=== PATIENT | male | born 1995 ===

== ENCOUNTER 2017-04-23 12:26 | Emergency (ER) | payer MEDICAID, OTHER ==
[2017-04-23 12:38] VITALS: BMI 20.3
[2017-04-23] MEDS ORDERED: Dexamethasone 4 mg/1 ml ONE (12:59)
--- NOTE | 2017-04-23 14:24 | C.PDOC ---
History Of Present Illness 22 year old male presents to the ED for evaluation of sore throat which began 2 days ago. Patient is unclear about tactile temperature. Patient notes he took leftover antibiotics at home yesterday. Patient denies cough, ear pain, runny nose, or sick contacts. Time Seen by Provider: 04/23/17 12:41 Chief Complaint (Nursing): ENT Problem History Per: Patient History/Exam Limitations: None Onset/Duration Of Symptoms: Days (2) Current Symptoms Are (Timing): Still Present Past Medical History Reviewed: Historical Data, Nursing Documentation, Vital Signs Vital Signs: Last Vital Signs Temp 101.0 F H 04/23/17 14:00 Pulse 93 H 04/23/17 14:00 Resp 19 04/23/17 14:00 BP 132/71 04/23/17 14:00 Pulse Ox 97 04/23/17 14:26 - Medical History PMH: No Chronic Diseases Surgical History: No Surg Hx Family History: States: Unknown Family Hx - Social History Hx Alcohol Use: No Hx Substance Use: No - Immunization History Hx Tetanus Toxoid Vaccination: No Hx Influenza Vaccination: No Hx Pneumococcal Vaccination: No Review Of Systems ENT: Positive for: Throat Pain. Negative for: Ear Pain, Nose Discharge Respiratory: Negative for: Cough Physical Exam - Physical Exam Appears: Non-toxic, Other (uncomfortable) Skin: Normal Color, Warm, Dry Head: Tenderness (submandibular area ) Eye(s): bilateral: Normal Inspection Ear(s): Bilateral: Normal Nose: Normal, No Discharge Oral Mucosa: Moist Throat: Other (bilateral tonsilar swelling with exudates. no tracheal tenderness ) Chest: Symmetrical, No Deformity, No Tenderness Cardiovascular: Rhythm Regular, No Murmur Respiratory: Normal Breath Sounds, No Rales, No Rhonchi, No Wheezing Extremity: Normal ROM, Capillary Refill (less than 2 seconds ) Neurological/Psych: Oriented x3, Normal Speech, Normal Cognition Gait: Steady ED Course And Treatment - Laboratory Results Result Diagrams: 04/23/17 14:40 04/23/17 14:40 O2 Sat by Pulse Oximetry: 97 (on RA) Pulse Ox Interpretation: Normal Medical Decision Making Medical Decision Making: Progress: Bloodwork ordered and reviewed. Motrin PO, Tylenol PO, Decadron IM, Clindamycin IV, and and IV Fluids administered. 412 pm pt feeling much batter, decreased swelling in tonsil, able to swallow po fluids and pills, pt appears much better., will d/c with ibuprofen and antibiotics. Disposition Counseled Patient/Family Regarding: Studies Performed, Diagnosis, Need For Followup, Rx Given - Disposition Referrals: [facility] [Outside] [facility] [Outside] Disposition Time: 16:14 Condition: IMPROVED Additional Instructions: Please take antibiotics as prescribed until completely finished, do not leave any over. Take ibuprofen for pain or fever. Gargle with warm salty water several times a day. Follow up in medical clinic in 1-2 days. Return to ER for any worse pain. swelling. difficulty breathing or swallowing. Prescriptions: Amoxicillin/Clavulanate [Augmentin 875 MG-125 MG] 1 tab PO BID #20 tab Ibuprofen [Motrin] 600 mg PO TID #30 tab Instructions: Tonsillitis (ED) Forms: [facility] (American), Gen Discharge Inst American, Work Excuse - Clinical Impression Clinical Impression: Tonsillitis with exudate - PA / OPERATION SUPERVISOR / Resident Statement MD/DO has reviewed & agrees with the documentation as recorded. - Scribe Statement The provider has reviewed the documentation as recorded by the Scribe (Darlyn Avery) All medical record entries made by the Scribe were at my direction and personally dictated by me. I have reviewed the chart and agree that the record accurately reflects my personal performance of the history, physical exam, medical decision making, and the department course for this patient. I have also personally directed, reviewed, and agree with the discharge instructions and disposition.
[2017-04-23] MEDS ORDERED: Acetaminophen 160 mg/5 ml elixir (120 ml) ONE (14:43)
[2017-04-23] MEDS: Sodium Chloride 0.9% 1,000 ML IV ONE (14:44)
[2017-04-23] MEDS: Acetaminophen 160 mg/5 ml UD PO STA (14:45)
[2017-04-23 14:52] LABS: CHLORIDE 96 mmol/L (98-107); POTASSIUM 3.7 mmol/L (3.6-5.2); SODIUM 132 mmol/L (132-148)
[2017-04-23 14:55] LABS: BLOOD UREA NITROGEN 12 mg/dL (9-20); CALCIUM 9.4 mg/dl (8.6-10.4); CARBON DIOXIDE 23 mmol/L (22-30); GFR AFRICAN-AMERICAN > 60; GLUCOSE,RANDOM 95 mg/dL (75-110)
[2017-04-23 15:08] LABS: BASO % 0.2 % (0.0-2.0); HEMATOCRIT 42.9 % (35.0-51.0); LYMPH # 0.9 K/uL (1.0-4.3); LYMPH % 5.4 % (20.0-40.0); MEAN CORPUSCULAR HEMOGLOBIN 31.9 pg (27.0-31.0); MEAN CORPUSCULAR HGB CONC 35.8 g/dL (33.0-37.0); MEAN PLATELET VOLUME 10.1 fL (7.2-11.7); MONO # 0.6 K/uL (0.0-0.8); MONO % 3.8 % (0.0-10.0); NRBC % 0.1 % (0.0-2.0); PLATELET COUNT 187 K/uL (130-400); RED CELL DISTRIBUTION WIDTH 12.8 % (11.5-14.5)
[2017-04-23 15:13] LABS: NEUTROPHIL 90 % (50-75); TOTAL CELLS COUNTED 100
[2017-04-23 16:14] VITALS: BP 119/73; PULSE 67; RESP 16; TEMP 97.7
[2017-04-23 16:15] VITALS: O2SAT 97
== END 2017-04-23 16:26 | disposition home or self-care (01) ==
LOC: C.ER 12:26
DX: J03.90 Acute tonsillitis, unspecified (principal)
CPT/HCPCS: 80048; 85025; 87070; 87430; 96365; 96372; 99284; J1100; J7040

== ENCOUNTER 2018-09-30 15:24 | Emergency (ER) | payer MEDICAID, OTHER ==
[2018-09-30 15:24] VITALS: BMI 20.3
[2018-09-30] MEDS ORDERED: cefTRIAXone 250 MG, Water For Injection 20 ML IM ONE (16:23)
[2018-09-30 16:25] LABS: URINE BACTERIA RARE (<OCC); URINE BILIRUBIN NEGATIVE (NEGATIVE); URINE BLOOD NEGATIVE (NEGATIVE); URINE CLARITY Clear (Clear); URINE COLOR Yellow (YELLOW); URINE GLUCOSE (UA) NORMAL (Normal); URINE LEUKOCYTE ESTERASE NEG Leu/uL (Negative); URINE PROTEIN 1+ mg/dL (NEGATIVE); URINE UROBILINOGEN NORMAL mg/dL (0.2-1.0)
--- NOTE | 2018-09-30 16:43 | C.PDOC ---
History Of Present Illness 23 year old male presents to ED with complaint of dysuria for 4 weeks after having unprotected sex. Patient also complains of crampy belly discomfort. Patient denies penile discharge. Time Seen by Provider: 09/30/18 15:37 Chief Complaint (Nursing): Abdominal Pain History Per: Patient History/Exam Limitations: no limitations Onset/Duration Of Symptoms: Other (4 weeks) Current Symptoms Are (Timing): Still Present Location Of Pain/Discomfort: Diffuse Radiation Of Pain To:: None Quality Of Discomfort: Cramping Associated Symptoms: Urinary Symptoms (dysuria). denies: Fever, Chills, Other (penile discharge) Exacerbating Factors: None Alleviating Factors: None Past Medical History Reviewed: Historical Data, Nursing Documentation, Vital Signs Vital Signs: Last Vital Signs Temp 97.7 F 09/30/18 15:32 Pulse 57 L 09/30/18 15:32 Resp 16 09/30/18 15:32 BP 151/80 H 09/30/18 15:32 Pulse Ox 100 09/30/18 15:32 - Medical History PMH: No Chronic Diseases Surgical History: No Surg Hx Family History: States: Unknown Family Hx - Social History Hx Alcohol Use: No Hx Substance Use: No - Immunization History Hx Tetanus Toxoid Vaccination: No Hx Influenza Vaccination: No Hx Pneumococcal Vaccination: No Review Of Systems Constitutional: Negative for: Fever, Chills, Weakness Gastrointestinal: Positive for: Abdominal Pain Genitourinary: Positive for: Dysuria. Negative for: Penile Discharge Skin: Negative for: Rash Physical Exam - Physical Exam Appears: Well, Non-toxic, No Acute Distress Skin: Normal Color, Warm, Dry Head: Atraumatic, Normacephalic Neck: Normal ROM, Supple Chest: Symmetrical, No Deformity Respiratory: No Accessory Muscle Use Gastrointestinal/Abdominal: Soft, No Tenderness Neurological/Psych: Oriented x3, Normal Speech, Normal Cognition ED Course And Treatment O2 Sat by Pulse Oximetry: 100 (in RA) Progress Note: Chlamydia/GC and UA ordered for patient. Patient given Rocephin and Zithromax. Medical Decision Making Medical Decision Making: dysuria x 4 weeks after unprotected sex + foul smelling thin/liquid penile d/c. treat empirically for GC/Chlamydia opt f/u @ [facility]. Disposition Doctor Will See Patient In The: Office Counseled Patient/Family Regarding: Studies Performed, Diagnosis - Disposition Referrals: [facility] [Outside] [facility] [Outside] [facility] [Outside] [facility] [Outside] Disposition: HOME/ ROUTINE Disposition Time: 17:06 Condition: GOOD Additional Instructions: you were treated empircally for GC/Chlamydia with Rocephin 250 mg IM and Azithromycin 1000 mg by mouth this is COMPLETE treatment for GC/Chlamydia- no further antibiotics need be taken @ home for this suspected infection follow-up @ the [facility] for further STD testing ie; HIV, Syphilis, Hepatitis NO sexual activity for 1 week Alert sexual partner(s) to be evaluated for same. you may become REINFECTED if unprotected sex with the same infected partner again. Instructions: Urethritis, Screening for Sexually Transmitted Infections Forms: [facility] (Croatian) - Clinical Impression Clinical Impression: Penile discharge - Scribe Statement The provider has reviewed the documentation as recorded by the Scribe (Saar Contreras) All medical record entries made by the Scribe were at my direction and personally dictated by me. I have reviewed the chart and agree that the record accurately reflects my personal performance of the history, physical exam, medical decision making, and the department course for this patient. I have also personally directed, reviewed, and agree with the discharge instructions and disposition.
[2018-09-30] MEDS ORDERED: WATER FOR INJECTION IM ONE (17:30)
[2018-09-30] MEDS ORDERED: CEFTRIAXONE 250 MG IM ONE (17:30)
[2018-09-30 18:16] VITALS: BP 132/81; PULSE 77; RESP 20; TEMP 98.6; O2SAT 98
== END 2018-09-30 18:47 | disposition home or self-care (01) ==
LOC: C.ER 15:24
DX: R36.9 Urethral discharge, unspecified (principal)
CPT/HCPCS: 81001; 87491; 87591; 96372; 99284; J0696